=== PATIENT | male | born 1985 | race Caucasian/White ===

== ENCOUNTER 2020-11-14 07:00 | Outpatient (RCR) | payer OTHER, SELFPAY ==
--- NOTE | 2020-12-18 11:24 | MHC.PT.DC ---
[facility] [place] Office [place] Office [place] Office [address] Lorne Mcnamara [address] [phone] F: [phone] F: [phone] F: [phone] F: [phone] Physical Therapy Discharge Report Diagnosis: Low back pain, s/p decompression L5-S1 Date of Surgery: 04/26/20 Date of Evaluation: 08/24/20 Date of Discharge: 12/11/20 Treatments to Date: 18 Cancellations to Date: 0 No Shows to Date: 0 Discharge Status: Independent with HEP Discharge Summary: Pt was traveling and unable to continue PT at this time. He has progressed well to the point of the jogging program and demonstrates good understanding of how to progress independently. Electronically signed by: Aden Loera PT Please sign and return to therapist. Thank you for your referral.
== END 2020-12-18 11:24 | disposition home or self-care (01) ==
LOC: HO.PTCHIC 07:00
PROVIDERS: PCP Nurse Practitioner Family; Visit Provider Nurse Practitioner Family
DX: M54.5 Low back pain (principal)
CPT/HCPCS: 97014; 97110; 97112; 97140; 97530; 97535

== ENCOUNTER → 2020-11-26 08:57 | Outpatient (BNVA) | payer OTHER, SELFPAY | PROVIDERS: PCP Nurse Practitioner Family; Visit Provider Orthopaedic Surgery | DX: S43.432A Superior glenoid labrum lesion of left shoulder, initial encounter (principal); M25.312 Other instability, left shoulder | CPT/HCPCS: 99202 ==

== ENCOUNTER 2021-03-27 07:00 | Outpatient (RCR) | payer OTHER, SELFPAY ==
--- NOTE | 2020-12-26 13:27 | MHC.PT.EP ---
[facility] [place] Office [place] Office [place] Office [address] Lorne Mcnamara [address] [phone] F: [phone] F: [phone] F: [phone] F: [phone] Physical Therapy Plan of Care Date of Evaluation: 12/26/20 Date of Surgery: n/a Diagnosis: Superior glenoid labrum lesion of left shoulder Assessment: Patient is a 35 year old R handed male who presents with s/s consistent with L superior glenoid labral lesion. He works with daily job demands including [employer]. Patient past medical history includes lumbar decompression surgery. Current impairments include pain, ROM, strength, posture, activity tolerance and functional mobility. Functional limitations include decreased ability to participate in recreational sports and activities, pull ups, push ups, and perform weight bearing activities.. Patient is motivated with good rehab potential. Skilled PT will address impairments and functional limitations in order to achieve goals. 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 Manual therapy to restore motion and function. Therapeutic exercise to improve strength and flexibility. Neuromuscular re-education for posture and balance. Therapeutic activities to return to functional activities of daily living. Electronically signed by: Aden Loera, PT Please sign and return to therapist. Thank you for your referral.
--- NOTE | 2021-08-13 07:29 | MHC.PT.EP ---
[facility] [place] Office [place] Office [place] Office [address] Mcnamara [address] [phone] F: [phone] F: [phone] F: [phone] F: [phone] Physical Therapy Plan of Care Date of Evaluation: Date of Surgery: n/a Diagnosis: Superior glenoid labrum lesion of left shoulder Assessment: Patient is a 35 year old R handed male who presents with s/s consistent with L superior glenoid labral lesion. He works with daily job demands including [employer]. Patient past medical history includes lumbar decompression surgery. Current impairments include pain, ROM, strength, posture, activity tolerance and functional mobility. Functional limitations include decreased ability to participate in recreational sports and activities, pull ups, push ups, and perform weight bearing activities.. Patient is motivated with good rehab potential. Skilled PT will address impairments and functional limitations in order to achieve goals. Frequency and Duration: The patient will be seen 2x/week for 6 weeks Short Term Goals: I with HEP - 2 weeks Symmetrical scapular depression with lat pull downs - 3 weeks Restore normal UR of L scap - 4 weeks Press Puller Goals: Able to perform 20 push ups/pull ups without increased pain/popping/clicking - 6 weeks Full weight body pull up - 6 weeks Treatment Plan: Modalities to reduce pain, spasms and effusion. Manual therapy to restore motion and function. Therapeutic exercise to improve strength and flexibility. Neuromuscular re-education for posture and balance. Therapeutic activities to return to functional activities of daily living. Electronically signed by: Aden Loera, PT Please sign and return to therapist. Thank you for your referral.
== END 2021-03-29 07:30 | disposition home or self-care (01) ==
LOC: HO.PTCHIC 07:00
PROVIDERS: PCP Nurse Practitioner Family; Visit Provider Orthopaedic Surgery
DX: S43.432D Superior glenoid labrum lesion of left shoulder, subsequent encounter (principal); M25.312 Other instability, left shoulder
CPT/HCPCS: 97110; 97140; 97161; 97530

== ENCOUNTER 2021-07-04 13:23 | Outpatient (REF) | payer OTHER, SELFPAY ==
--- NOTE | ~2021-07-04 | XR_ITS ---
EXAMINATION: XR SHOULDER, RIGHT CLINICAL INFORMATION: Pain. COMPARISON: Portions of the MRI shoulder dated 12/26/2019. TECHNIQUE: AP external rotation, Grashey and scapula Y views of the right shoulder. FINDINGS: The bones and soft tissues are normal. No fracture. Glenohumeral and acromioclavicular alignment is anatomic with normal joint space. No abnormal soft tissue calcifications. XR/XR shoulder RT min 2V IMPRESSION: Normal right shoulder.
== END 2021-07-04 13:24 | disposition home or self-care (01) ==
LOC: HO.HMGCX 13:23
PROVIDERS: PCP Nurse Practitioner Family; Visit Provider Hospitalist
DX: M25.511 Pain in right shoulder (principal)
CPT/HCPCS: 73030